=== PATIENT | female | born 1995 | race Caucasian/White ===

== ENCOUNTER 2025-05-01 06:18 | Inpatient (IN) | payer OTHER ==
[~2025-05-01] VITALS: Ht 154.9 cm; Wt 2.7 kg
[2025-05-01 05:43] VITALS: BP 131/81
[2025-05-01] MEDS ORDERED: RINGERS SOLUTION,LACTATED 1,000 ML IV SCH (07:00)
[2025-05-01] MEDS ORDERED: AMPICILLIN SODIUM 2,000 MG VIAL IV ONE (07:00)
[2025-05-01] MEDS ORDERED: AMPICILLIN SODIUM 2,000 MG VIAL ONE (07:14)
[2025-05-01 07:33] LABS: BASO % 0.1 % (0.1-1.2); EOS # 0.05 (0.04-0.54); EOS % 0.5 % (0.7-7.0); LYMPH # 1.87 (1.18-3.74); LYMPH % 20.4 % (19.3-53.1); MEAN PLATELET VOLUME 12.00 fl (9.4-12.4); MONO # 0.63 (0.24-0.82); MONO % 6.9 % (4.7-12.5); NEUT # 6.51 (1.56-6.13); NEUT % 71.2 % (34.0-71.1); RED CELL DISTRIBUTION WIDTH 14.3 % (11.6-14.4)
[2025-05-01 07:47] LABS: INR < 0.93
[2025-05-01 07:49] LABS: URINE APPEARANCE Clear; URINE BILIRRUBIN Negative (NEGATIVE); URINE BLOOD Negative; URINE COLOR Yellow; URINE GLUCOSE Negative (NEGATIVE); URINE KETONE 15 (NEGATIVE); URINE LEUKOCYTE Negative; URINE NITRATE Negative; URINE PROTEIN Trace (NEGATIVE); URINE UROBILINOGEN 1.0 E.U./dl
[2025-05-01 07:51] VITALS: BP 113/80
[2025-05-01 07:52] LABS: URINE BACTERIA 89.1 uL (0.0-1933); URINE EPITHELIAL CELLS 6.5 uL (0.0-38.8); URINE WBC 7.4 uL (0.0-23.2)
[2025-05-01 08:01] LABS: URINE CAST 0.56 uL (0.0-1.40); URINE RBC 1.4 uL (0.0-20.8)
[2025-05-01] MEDS ORDERED: MORPHINE SULFATE 4 MG/ML VIAL IV ONE (08:15)
[2025-05-01] MEDS ORDERED: OXYTOCIN 500 ML IV SCH (08:15)
[2025-05-01 08:31] LABS: ALT/SGPT 19.0 U/L (12-78); AST/SGOT 14.0 U/L (15-37); BILIRUBIN TOTAL 0.37 mg/dL (0.3-1.2); BUN CREA RATIO 14.0 (7.0-25.0); CREATININE SERUM 0.77 mg/dL (0.55-1.02); GFR 88.63; GLOBULINA 4.1 G/DL (2.4-3.5); GLUCOSE FASTING 81.0 mg/dL (65-100); OSMOLALITY SERUM 272.0 MOSM/KG (275-295)
[2025-05-01] MEDS ORDERED: OXYTOCIN 10 UNITS/ML VIAL ONE ×2 (08:56→13:44)
[2025-05-01] MEDS ORDERED: AMPICILLIN SODIUM 1,000 MG VIAL IV SCH (09:00)
[2025-05-01] MEDS ORDERED: ERYTHROMYCIN BASE OPHT 1GM EACH TUBE OP ONE (09:23)
[2025-05-01 10:36] LABS: RH POSITIVE
[2025-05-01] MEDS ORDERED: AMPICILLIN SODIUM 1,000 MG VIAL ONE (10:48)
[2025-05-01] MEDS ORDERED: KETOROLAC TROMETHAMINE 60 MG VIAL IM ONE (11:54)
[2025-05-01] MEDS ORDERED: MORPHINE SULFATE 4 MG/ML VIAL IV SCH (13:00)
[2025-05-01 14:10] VITALS: BP 109/67
[2025-05-01 16:41] VITALS: BP 132/82
[2025-05-01 18:21] LABS: BASO % 0.2 % (0.1-1.2); EOS # 0.01 (0.04-0.54); EOS % 0.1 % (0.7-7.0); LYMPH # 1.47 (1.18-3.74); LYMPH % 11.3 % (19.3-53.1); MEAN PLATELET VOLUME 12.00 fl (9.4-12.4); MONO # 0.80 (0.24-0.82); MONO % 6.2 % (4.7-12.5); NEUT # 10.60 (1.56-6.13); NEUT % 81.7 % (34.0-71.1); RED CELL DISTRIBUTION WIDTH 14.5 % (11.6-14.4)
[2025-05-01] MEDS ORDERED: KETOROLAC TROMETHAMINE 60 MG VIAL IM NR (23:00)
[2025-05-02] VITALS: BP 108/68
[2025-05-02] MEDS ORDERED: OxyCODONE HCL 5 MG TABLET (ROXICODONE) PO SCH (05:00)
[2025-05-02 08:00] VITALS: BP 116/76
[2025-05-02] MEDS ORDERED: PNV,CALCIUM 72/IRON/FOLIC ACID 1 TAB TABLET PO SCH (09:00)
[2025-05-02] MEDS ORDERED: SIMETHICONE 125 MG CAPSULE PO SCH (09:00)
[2025-05-02] MEDS ORDERED: DOCUSATE SODIUM 100MG CAP PO SCH (09:00)
[2025-05-02 16:50] VITALS: BP 111/71
[2025-05-03 00:54] VITALS: BP 123/80
[2025-05-03 09:12] VITALS: BP 126/86
[2025-05-03] MEDS ORDERED: IBUPROFEN800 MG PO (10:09)
== END 2025-05-03 12:58 | disposition home or self-care (01) | DRG 788 ==
LOC: OB/GYN 06:18 → LDR 06:18 → O/R 06:18 → OB/GYN 13:36
PROVIDERS: ADMIT Obstetrics & Gynecology; ATTEND Obstetrics & Gynecology
PROC: 4A1HXCZ Monitoring of Products of Conception, Cardiac Rate, External Approach (ICD-10-PCS; 2025-05-01)
PROC: 10D00Z1 Extraction of Products of Conception, Low, Open Approach (ICD-10-PCS; principal; 2025-05-01 12:00)
DX: O82 Encounter for cesarean delivery without indication (principal); Z3A.39 39 weeks gestation of pregnancy; Z37.0 Single live birth